=== PATIENT | female | born 1955 | race Caucasian/White ===

== ENCOUNTER 2018-11-08 06:41 | Inpatient (IN) ==
--- NOTE | 2018-11-07 21:46 | Discharge Summary ---
Date of Encounter: 11/11/18 Time of Encounter: 12:50 - Discharge Diagnosis (1) History of total knee arthroplasty Priority: Primary Status: Chronic Qualifiers: Laterality: left Qualified Code(s): Z96.652 - Presence of left artificial knee joint (2) Loosening of prosthesis of left total knee replacement Priority: Primary Status: Chronic Qualifiers: Encounter type: initial encounter Qualified Code(s): T84.033A - Mechanical loosening of internal left knee prosthetic joint, initial encounter (3) Status post total knee replacement Priority: Primary Status: Acute Qualifiers: Laterality: left Qualified Code(s): Z96.652 - Presence of left artificial knee joint (4) HTN (hypertension) Priority: Secondary Status: Chronic Qualifiers: Hypertension type: unspecified Qualified Code(s): I10 - Essential (primary) hypertension (5) HLD (hyperlipidemia) Priority: Secondary Status: Chronic Qualifiers: Hyperlipidemia type: unspecified Qualified Code(s): E78.5 - Hyperlipidemia, unspecified - Hospital Course Hospital course: Ms. Carmona is a 63 year old female Date of procedure: 11/08/18 Pre-op diagnosis: ASeptic loosening left total knee Post-op diagnosis: same Procedure: Left revision robotic-assisted Total knee replacement POD#3 Patient seen at bedside. A&Ox3 Dressing and incision c/d/i No calf tenderness, erythema, or warmth. Neurovascularly intact b/l LE. Labwork, vitals, and medications reviewed. Pain control: Adequate Participating in PT. All questions and concerns addressed. Educated on use of incentive spirometer, ambulation, and hydration. Patient educated on post-operative restrictions and care. Addressed: Patient initially recommended for inpatient rehab, however, patient has improved in self-sufficiency significantly over the past 48 hours and will now discharge home with outpatient therapy. D/C plan: Home with outpatient therapy and outpatient follow up arranged. - Time Spent with Patient Total time spent providing and/or coordinating discharge services: - Discharge Medications Prescriptions: Aleksandr Aspirin Enteric Coated [Aspirin EC] 325 mg PO BID 10 Days #20 tablet. Acetaminophen [Non-Aspirin Extra Strength] 500 mg PO Q6H PRN 7 Days #28 tablet PRN Reason: Mild To Moderate Pain Continued Zolpidem [Ambien] 10 mg PO HS Simvastatin [Zocor] 40 mg PO QPM Triamterene/Hydrochlorothiazid [Triamterene-Hctz 75-50 mg Tab] 1 tab PO QAM Omeprazole [PriLOSEC] 20 mg PO QPM [place]-3/Dha/Epa/Fish Oil [Fish Oil 1,000 mg Softgel] 1,000 mg PO QPM Aspirin [Lo-Dose Aspirin EC] 81 mg PO QPM Amitriptyline [Elavil] 10 mg PO QPM Cetirizine HCl [Zyrtec] 10 mg PO DAILY Metoprolol Succinate 12.5 mg PO QPM Home Medications: Acetaminophen [Non-Aspirin Extra Strength] 500 mg PO Q6H PRN 7 Days #28 tablet 11/07/18 [Rx] Aspirin Enteric Coated [Aspirin EC] 325 mg PO BID 10 Days #20 tablet.dr 11/07/18 [Rx] Amitriptyline [Elavil] 10 mg PO QPM 11/08/18 [History] Aspirin [Lo-Dose Aspirin EC] 81 mg PO QPM 11/08/18 [History] Cetirizine HCl [Zyrtec] 10 mg PO DAILY 11/08/18 [History] Metoprolol Succinate 12.5 mg PO QPM 11/08/18 [History] [place]-3/Dha/Epa/Fish Oil [Fish Oil 1,000 mg Softgel] 1,000 mg PO QPM 11/08/18 [History] Omeprazole [PriLOSEC] 20 mg PO QPM 11/08/18 [History] Simvastatin [Zocor] 40 mg PO QPM 11/08/18 [History] Triamterene/Hydrochlorothiazid [Triamterene-Hctz 75-50 mg Tab] 1 tab PO QAM 11/08/18 [History] Zolpidem [Ambien] 10 mg PO HS 11/08/18 [History] Allergies/Adverse Reactions: Allergy/AdvReac Type Severity Reaction Status Date / Time No Known Allergies Allergy Verified 11/08/18 07:54 Date of admission: 11/08/18 Primary care physician: PCP NONE Discharging clinician: Michael Erickson Anticipated date of discharge: 11/11/18 - VTE Documentation of Mechanical Device: Venous foot pump, device - Patient Status Disposition: Home, Self-Care Condition: Good Functional capacity at discharge: uses cane/walker Overall status at discharge: patient is progressing back to baseline - Discharge Instructions Follow Up With: Beth Good PAC [Physician Exhibit Display Representative] - 11/18/18 10:30 am (ALSO, 11/26/18 @ 10:30AM) Michael Erickson MD [Partnered Physician] - 12/08/18 5:20 pm NONE,PCP [Non-Partnered Physician] - Additional Instructions: Discharge Instructions: Total Knee Replacement Please call [facility] ([phone]), your Primary Care Physician, or report to the Emergency Room if you have any of the following symptoms: Nausea, vomiting, fever greater that 101.5, swelling, chest pain, shortness of breath, increased pain/redness/drainage/odor for your incision site, numbness/tingling, or any other concerning symptoms. ACTIVITY:Weight-bearing as tolerated. You may progress off support (crutches or walker) as tolerated. Incentive Spirometer 10 times an hour. MEDICATIONS: Upon discharge resume your home medications. Take all the medications as prescribed. Take a stool softener if taking narcotic pain medications. Stool softeners are only effective if you drink enough fluids. Drink 6-8 glass of water or fluids a day, unless this is not allowed for another health problem. Despite using stool softeners, if you haven't had a bowel movement in 3 days, please switch to a gentle laxative. Gentle laxatives are sold over the counter. You should have a bowel movement within 24 hours, if not call the office. You will be discharged from the hospital with a prescription for pain medication. You are encouraged to decrease the use of narcotic pain medication as tolerated. Should you require a refill, please call the office. [facility] prescribes narcotic pain medication for only 4-6 weeks after surgery. If you require pain medication beyond this time period, you may be referred to your Primary Care Physician or to the Pain Clinic for further evaluation. Plan ahead for refills on pain medication as many narcotics either need to be picked up at the office or mailed. It is best to call 48-72 hours in advance of needing a prescription refill so you don't run out of medication. To help control the post-operative pain, you may take NSAIDs (Aleve,Advil, Motrin, Ibuprofen, Naprosyn) or Tylenol as prescribed on the bottle in addition to the pain medication. ANTICOAGULATION (blood thinners): Continue your Aspirin, Lovenox or Coumadin as prescribed to help prevent a blood clot in the leg or in the lungs. As long as your incision remains dry and you tolerate the NSAIDs (Aleve, Advil, Motrin, ibuprofen, naprosyn), it is OK to use the NSAIDS while you are taking your anticoagulation medication. Should your incision start to drain, stop the NSAID and contact our office. Common symptoms of blood clot in the legs include: localized pain, swelling, calf tenderness, redness or discoloration of the skin. Blood clot in the lung symptoms include: shortness of breath, rapid pulse, sweating, and chest pain that worsens with deep breathing, coughing up blood, lightheadedness, feelings of anxiety. If you experience any of these symptoms notify your physician immediately, go to the emergency room, or if having trouble breathing, call 911. WOUND CARE: Leave the dressing on for 7 to 10days. You may change the dressing if it becomes saturated greater than 50%. Do not get the dressing wet at anytime. Wash your hands with antibacterial soap, rinse and dry prior to any wound care. If you have kamron the visiting nurse or rehab facility can remove the stapes 10-14 days after surgery and place steri-strips across the wound. Leave the steri-strips in place until they fall off on their won. You may let water from the shower run on top of the steri-strips. If you do not have a visiting nurse or rehab facility, you will need to return to the office at 10-14 days for the kamron to be removed. If you have itching or redness around the dressing call the office. FOLLOW-UP: Please follow up with your surgeon in the orthopedic clinic in 4 weeks from the day of surgery. If you have kamron that need to be removed, you will need to come back to the office in 10-14 days from the day of surgery. - Diet and Activity Activity: as per physical therapy Diet: advance to your usual diet
[2018-11-08] MEDS ORDERED: Celecoxib 200 MG CAPSULE PO ONE (07:43)
[2018-11-08] MEDS ORDERED: Ketorolac 30 MG/ML VIAL IVP PRN (07:43)
[2018-11-08] MEDS ORDERED: Acetaminophen IV 1,000 MG/100 ML INFUS..BTL IVPB ONE (07:43)
[2018-11-08] MEDS ORDERED: traMADol 50 MG TABLET PO ONE (07:43)
[2018-11-08] MEDS ORDERED: *HR* Meperidine 25 MG/ML SYRINGE IVP PRN (07:43)
[2018-11-08] MEDS ORDERED: Albuterol 2.5 MG/3 ML NEBULIZER IH PRN (07:43)
[2018-11-08] MEDS ORDERED: *HR* HYDROmorphone (PF) 1 MG/ML SYRINGE IVP PRN (07:44)
[2018-11-08] MEDS ORDERED: Ondansetron 4 MG/2 ML VIAL IVP ONE (07:44)
[2018-11-08] MEDS ORDERED: *HR* OxyCODONE Immed Rel 5 MG TABLET PO PRN (07:44)
[2018-11-08] MEDS ORDERED: *HR* Promethazine 25 MG/ML VIAL IVP PRN (07:44)
--- NOTE | 2018-11-08 07:46 | Anesthesia Evaluation PreOp ---
Date of Encounter: 11/08/18 Time of Encounter: 07:43 - Past History Planned Operation: LEFT TKA, REVISION Cardiac History: HTN Pulmonary History: Denies Any Significant HX WATCH CRYSTAL GRINDER History: Other (INSOMNIA) Other Medical History: GERD (CONTROLLED) Anesthesia History: No Prior Anesthetic Complications, Past Anesthesia Medications and Allergies Acetaminophen [Non-Aspirin Extra Strength] 500 mg PO Q6H PRN 7 Days #28 tablet 11/07/18 [Rx] Aspirin Enteric Coated [Aspirin EC] 325 mg PO BID 10 Days #20 tablet. 11/07/18 [Rx] Docusate Sodium [Colace] 100 mg PO BID 5 Days #10 capsule 11/07/18 [Rx] OxyCODONE Immed Rel [Roxicodone 5 MG] 5 mg PO Q6HR PRN 5 Days #20 tablet 11/07/18 [Rx] Allergy/AdvReac Type Severity Reaction Status Date / Time No Known Allergies Allergy Verified 11/03/18 15:49 - Meds/Allergy Pre-op Review Medications Reviewed: Yes Allergies Reviewed: Yes Beta Blockers on Current Med List: Yes If Beta Blockers taken, Date/Time (Last Dose taken): 2100 Anesthesia Exam Vital Signs/O2 Sat, Most Current Temp Pulse Resp BP Pulse Ox 98.0 F 80 18 129/87 99 11/08/18 07:04 11/08/18 07:04 11/08/18 07:04 11/08/18 07:04 11/08/18 07:04 Weight: 76 KG - BMI 31 NPO (# of Hours): 8 - HEENT Mallampati: I Teeth: Normal - Cardiac Rhythm: Regular - Pulmonary Breath Sounds: bilateral Clear Anesthesia Assess/Plan ASA Score: 2 Anesthetic Plan: Regional Nerve Block, Spinal Monitoring Plan: Standard Monitors Recovery Plan: PACU
--- NOTE | 2018-11-08 07:56 | History & Physical Report ---
Date of Encounter: 11/08/18 Time of Encounter: 07:56 24 Hour HP Update - Instructions Instructions: If the History and Physical is less than 30 days old and was completed prior to A.M. admission and or procedure and has NOT been updated on calendar day of procedure please complete this update prior to performing procedure. - Update Patient reports changes in Medical Condition: No Changes in examination, assessment, or condition: No Changes in Medication: No Preop tests/diagnostics Reviewed: Yes Surgery Remains Indicated: Yes Consent for Planned Operative Procedure(s) Verified: Yes - Pre-Operative Checklist Preoperative Checklist Indicated: No Prophylactic Antibiotic Ordered: Yes Is VTE Prophylaxis Indicated?: Yes
[2018-11-08] MEDS ORDERED: Ringers Solution, Lactated 1,000 ML IVC SCH (08:00)
[2018-11-08] MEDS ORDERED: *HR* FentaNYL (PF) 100 MCG/2 ML VIAL ONE (08:17)
[2018-11-08] MEDS ORDERED: Propofol 500 MG/50 ML INFUS..BTL ONE (08:17)
[2018-11-08] MEDS ORDERED: *HR* Midazolam HCl 2 MG/2 ML VIAL ONE (08:17)
[2018-11-08] MEDS ORDERED: *HR* Propofol 200 MG/20 ML VIAL IVP ONE ×2 (08:17→10:10)
[2018-11-08] MEDS: Gabapentin 300 MG CAPSULE PO ONE ×2 (08:19→08:28)
[2018-11-08] MEDS ORDERED: Lidocaine -MPF 2% 2 ML VIAL ONE (08:20)
[2018-11-08] MEDS ORDERED: ROPIVACAINE HCL/PF 0.5% 30 ML VIAL ONE (08:35)
[2018-11-08] MEDS ORDERED: Ethanol\\Acetic Acid\\Na Ace\\Ben 1,000 ML IRRIG.SOLN IR ONE (08:44)
--- NOTE | 2018-11-08 09:19 | Anesthesia Procedures ---
Date of Encounter: 11/08/18 Time of Encounter: 08:50 Procedures: Anesthesia - Epidural/Spinal Patient ID/Chart reviewed: Yes Patient examined: Yes Consent Obtained: Yes Supplemental Oxygen: Nasal Cannula Supplemental Oxygen Rate (L/min): 2 Sedation: Versed (mg): 2 Sedation: Fentanyl (mcg): 100 Site Prep: Sterile prep and drape, 0.5% Chlorhexidine/Alcohol Patient position: upright Local Anesthetic: Lidocaine 1% Amount of Local Anesthetic used: 0.5 Interspace Used: L2-L3 Blood: No CSF: Yes Paresthesia: No Spinal Needle Gauge: 24 Spinal Dose: 2.5cc 0.5% PF Marcaine Procedure: [facility] - Nerve Block Procedure Date: 11/08/18 Time: 09:05 Surgical Procedure: Left TKA Checklist: Correct Patient Identifier, Correct procedure, History checked Correct side: Left Blood Thinner: No Monitor Applied: EKG, BP, Pulse Oximetry Supplemental Oxygen via Nasal Cannula (L/min): 2 Sedation: Versed (mg): 0 (already received sedation for spinal) Indication: Post Op Analgesia (per dr. finn) Pre-op Neuro Deficits: No Block Type: Other (adductor canal) Catheter placed: No Sterile Technique: Yes Ultrasound used: Yes Anatomy identified: Yes Visual spread of Local: Yes Neuro Stimulation: No Blood on Needle Aspiration: No Smooth Injection of Local: Yes Pain with Injection of Local: No Prep: Chlorhexadine Needle: 22 x 50 mm Stimuplex Local: Ropivacaine (0.5% with 4mg decadron) Volume (cc): 10 Number of Attempts: 1 Complications: None/effective block Vitals: Vital Signs/O2 Sat/Glucose, Most Recent Temp Pulse Resp BP Pulse Ox 98.0 F 86 16 118/74 95 11/08/18 07:04 11/08/18 09:13 11/08/18 09:13 11/08/18 09:13 11/08/18 09:13 Comments: [facility]
[2018-11-08] MEDS ORDERED: *HR* PHENYLEPHRINE 1,000 MCG/10 ML SYRINGE IVP ONE ×2 (09:22→10:09)
[2018-11-08] MEDS ORDERED: Tranexamic Acid 1,000 MG/10 ML VIAL ONE (09:29)
[2018-11-08] MEDS ORDERED: EPHEDrine 50 MG/ML VIAL ONE (09:47)
[2018-11-08] MEDS ORDERED: Ropivacaine/PF 0.5% 24.62 ML, EPINEPHrine 0.25 MG, Ketorolac 15 MG, Water for inj. (ste... IR ONE (09:50)
--- NOTE | 2018-11-08 10:44 | Orthopedic Operative Note ---
Date of procedure: 11/08/18 Pre-op diagnosis: ASeptic loosening left total knee Post-op diagnosis: same Procedure: Procedure: Left revision robotic-assisted Total knee replacement Estimated blood loss: 200 cc Hardware: Metal and polyethylene replacement. Oralia Femur: 2 TS, 14 x 100 stem Tibia: 2, 5 mm augments medial and lateral 10 x 100 stem TS insert: 19 Exam Under anesthesia: 0 degrees flexion-extension, 7 degree varus as calculated by the robot full flexion and no instability Procedural Notes: Loosening of tibial and femoral components. Operative procedure: The patient was brought to the operating room and placed on the operating room table. After general anesthesia was administered the operative knee was examined. Findings were noted in the exam under anesthesia. The operative extremity was prepped and draped in sterile surgical fashion. The patient received IV antibiotics prior to skin incision. A standard midline incision was made centered over the patella. The incision was made through the old incision. The incision was made through the skin and subcutaneous tissue. A medial parapatellar tendon approach was performed. Care was taken to preserve tissue along the medial aspect of the patella. And to protect the patella tendo n. The deep MCL was released off the medial tibia. The infra patella fat pad was excised. Joint fluid encountered was normal appearing joint fluid, this was sent for Gram stain and culture. Patella component was without abnormality. Was well fixed. Knee was brought into flexion. Steinmann pins were placed in the tibia and the femur for the tibial and femoral arrays respectively. Checkpoints were also placed in the tibia and the femur for calculation purposes. The knee including the femur and the tibial registered. Using careful surgical technique, the interface between the patient's distal femur and femoral component was disrupted with an osteotome and oscillating saw, this resulted in the removal of the femoral component without significant loss of bone. The same technique was countersunk tibia without loss of bone. Femoral cuts were made first with robotic assistance, these included the anterior cut posterior cuts chamfer cuts. Tibial cut was then performed with robotic assistance as well. Bone fragments were removed. The size 2 femoral guide was seated box cut was made lug holes are drilled. The size 2 tibial tray was seated and prepared with the fin cutter. Trial reduction with the 19 TS Marga revealed extension of 0 degree and 2 degree varus and full flexion. This was with augments and 5 mm medial and lateral. No varus valgus instability. Trial reduction revealed excellent patella tracking. The distal femur was reamed up to a 14 x 100, the proximal tibia was reamed up to a 10 x 100. All trial components were removed all bony surfaces were irrigated. The Tibia was seated followed by the femur, The selected Marga size was seated. Patient had similar findings for motion and stability. The knee was closed by the PA. The knee was then irrigated out with 2 L of pulse irrigation. The extensor mechanism was closed with #2 FiberWire suture and #2 PDS suture. The subcutaneous tissue was then irrigated and closed deep with #1 PDS suture superficially with 0 PDS suture and skin was closed with zip tie The patient was then placed in a sterile dressing and a postoperative brace extubated and transferred to recovery room in stable condition. Anesthesia: spinal Surgeon: Michael Erickson Was there an assistant professor of german present: No Estimated blood loss (cc): 200 Condition: stable Disposition: PACU
--- NOTE | 2018-11-08 11:39 | Anesthesia Evaluation Post Op ---
Date of Encounter: 11/08/18 Time of Encounter: 11:38 - Vital Signs Vital Signs: Last Vital Signs Temp 98.1 F 11/08/18 11:35 Pulse 77 11/08/18 11:35 Resp 16 11/08/18 11:35 BP 114/66 11/08/18 11:35 Pulse Ox 95 11/08/18 11:35 - Lungs Lungs: Clear Ascult./Percussion - Airway Airway: Non-obstructed - Cardiovascular Regular Rate - Mental Status Mental Status: Alert & Oriented, Answers Appropriately - Pain Pain Scale: 0 - Nausea Vomiting Nausea Vomiting: Not Present - Hydration Hydration: Ice chips - Discharge PostOp Status: Transfer Patient to floor
[2018-11-08 11:40] LABS: Hematocrit 35.5 % (35.3-44.9)
[2018-11-08 11:44] LABS: Hemoglobin 12.2 g/dL (11.5-15.4)
[2018-11-08] MEDS ORDERED: Sennosides 8.6 MG TABLET PO PRN (12:03)
[2018-11-08] MEDS ORDERED: Naloxone 0.4 MG/ML INJ IVP PRN (12:03)
[2018-11-08] MEDS ORDERED: MOM Conc 10 ML UD.LIQ PO PRN (12:03)
[2018-11-08] MEDS ORDERED: Temazepam 15 MG CAPSULE PO PRN (12:03)
[2018-11-08] MEDS: Ascorbic Acid 500 MG TABLET PO SCH ×2 (13:36→16:54)
[2018-11-08] MEDS: Loratadine 10 MG TABLET PO SCH (13:36)
[2018-11-08] MEDS: Multivit/Ca/Min/Fe/FA 1 TAB TABLET PO SCH (13:37)
[2018-11-08] MEDS: HYDROcodone BIT/Homatropine 5 MG TABLET PO PRN (13:51)
[2018-11-08] MEDS: Ondansetron 4 MG/2 ML VIAL IVP PRN (13:51)
[2018-11-08] MEDS: Ringers Solution, Lactated 1,000 ML IVC SCH ×2 (13:58→16:55)
[2018-11-08] MEDS: *HR* OxyCODONE Immed Rel 5 MG TABLET PO PRN (17:33)
[2018-11-08] MEDS ORDERED: *HR* Enoxaparin 30 MG/0.3 ML SYRINGE SQ SCH (18:00)
[2018-11-08] MEDS: *HR* Promethazine 25 MG/ML VIAL IVP PRN (18:47)
[2018-11-08] MEDS: Aspirin Enteric Coated 81 MG Tablet PO SCH (18:47)
[2018-11-08] MEDS: (Omega-3/Dha/Epa/Fish Oil [Fish Oil 1,000 Mg Softgel] PO SCH (18:48)
[2018-11-08] MEDS: *HR* Enoxaparin 30 MG/0.3 ML SYRINGE SQ SCH (18:48)
[2018-11-09] MEDS: *HR* OxyCODONE Immed Rel 5 MG TABLET PO PRN ×3 (01:08→22:44)
[2018-11-09] MEDS: *HR* Enoxaparin 30 MG/0.3 ML SYRINGE SQ SCH ×2 (05:20→18:11)
[2018-11-09] MEDS: HYDROcodone BIT/Homatropine 5 MG TABLET PO PRN ×2 (05:34→16:44)
--- NOTE | 2018-11-09 06:41 | Orthopedics Progress Note ---
Date of Encounter: 11/09/18 Time of Encounter: 06:41 Subjective Interval history: Patient was seen this morning doing well without complaints. Afebrile vital signs stable. Operative extremity: Neurovascularly intact Dressing clean dry and intact Calves nontender Assessment and plan: Continue with postoperative care Plan for discharge today Objective Vital signs: Vital Signs Temp Pulse Resp BP Pulse Ox 11/09/18 05:18 98.4 F 105/64 11/09/18 04:46 97.8 F 95 19 96/62 92 11/09/18 02:31 98.2 F 11/08/18 23:34 98 F 11/08/18 21:17 97.8 F 11/08/18 20:17 97.5 F L 91 17 123/81 96 11/08/18 18:52 97.4 F L 83 115/74 11/08/18 17:31 96.4 F L 11/08/18 17:00 95.8 F L 11/08/18 16:19 97.2 F L 11/08/18 13:30 72 16 108/73 97 11/08/18 12:29 99 11/08/18 12:28 74 14 113/73 99 11/08/18 12:05 88 11/08/18 11:53 97.4 F L 71 15 109/74 94 11/08/18 11:35 98.1 F 77 16 114/66 95 11/08/18 11:25 79 14 119/72 93 11/08/18 11:15 82 16 117/64 93 11/08/18 11:05 97.1 F L 86 16 111/64 95 11/08/18 09:13 86 16 118/74 95 11/08/18 09:08 84 16 128/77 93 11/08/18 09:03 80 16 127/86 98 11/08/18 08:58 82 16 127/90 93 11/08/18 08:53 82 18 151/100 97 11/08/18 07:04 98.0 F 80 18 129/87 99 Intake and Output 11/08/18 11/08/18 11/09/18 15:59 23:59 07:59 Intake Total 1100 / 1100 100 / 100 Output Total 200 / 200 Balance -200 / 900 1100 / 900 100 / 100 Intake: IV Fluids 1100 / 1100 100 / 100 Lactated Ringers 1,000 ML @ 75 1000 / 1000 mls/hr IVC .[id number] DANNY Rx#: [id number] Ancef 2,000 MG In 0.9 % Sodium 100 / 100 100 / 100 Chloride 100 ML @ 200 mls/hr IVPB Q8H DANNY Rx#:[id number] Output: Estimated Blood Loss 200 / 200 Other: # Voids 1 - Labs CBC & BMP: 11/08/18 11:18 - VTE Documentation of Mechanical Device: Venous foot pump, device Consult Discharge Plan - Plan Referrals: NONE,PCP [Non-Partnered Physician] -
[2018-11-09 07:03] LABS: Basophils % 0.1 %; Hematocrit 30.8 % (35.3-44.9); Immature Granulocytes % 0.4 % (0-4); Lymphocytes # 1.4 K/mcL (0.6-4.6); Mean Corpuscular HGB Conc 34.4 g/dL (31.6-35.5); Mean Corpuscular Volume 90.1 fL (83.0-100.0); Mean Platelet Volume 9.7 fL (9.4-12.4); Monocytes # 0.8 K/mcL (0.0-1.3); Monocytes % 5.1 %; Platelet Count 250 K/mcL (140-400); Red Blood Count 3.42 M/mcL (3.82-4.97); Red Cell Distribution Width 13.5 % (11.5-14.5); Segmented Neutrophils % 85.4 %
[2018-11-09 07:15] LABS: Neutrophils # 13.3 K/mcL (1.6-8.9)
[2018-11-09 07:16] LABS: Hemoglobin 10.6 g/dL (11.5-15.4)
[2018-11-09 07:26] LABS: BUN/Creatinine Ratio 21 (6-26); Blood Urea Nitrogen 20 mg/dL (8-23); Calcium 8.5 mg/dL (8.6-10.3); Carbon Dioxide 25 mEq/L (23-29); Chloride 101 mEq/L (98-107); Glucose 116 mg/dL (70-105); Osmolality,Calculated 282 (280-300); Potassium 3.7 mEq/L (3.5-5.1); Sodium 134 mEq/L (136-145); eGFR For Non-African Americans 59 (> 60)
[2018-11-09] MEDS: Ondansetron 4 MG/2 ML VIAL IVP PRN (09:39)
[2018-11-09] MEDS: Multivit/Ca/Min/Fe/FA 1 TAB TABLET PO SCH (09:39)
[2018-11-09] MEDS: Ascorbic Acid 500 MG TABLET PO SCH ×2 (09:40→18:12)
[2018-11-09] MEDS: Loratadine 10 MG TABLET PO SCH (09:40)
--- NOTE | 2018-11-09 11:46 | Event Note ---
Date of Encounter: 11/09/18 Time of Encounter: 13:00 Date of procedure: 11/08/18 Pre-op diagnosis: ASeptic loosening left total knee Post-op diagnosis: same Procedure: Left revision robotic-assisted Total knee replacement POD#1 Patient seen at bedside. A&Ox3 Dressing and incision c/d/i No calf tenderness, erythema, or warmth. Neurovascularly intact b/l LE. Labwork, vitals, and medications reviewed. Pain control: Adequate Participating in PT. All questions and concerns addressed. Educated on use of incentive spirometer, ambulation, and hydration. Patient educated on post-operative restrictions and care. Addressed: Awaiting [facility] authorization for ECF discharge. D/C plan: [facility] [place] [facility] Auth
--- NOTE | 2018-11-09 11:46 | Physician Discharge Referral ---
ExtendedCare Referral Info Transfer To: [facility] Provider in Charge: Dr. Michael Erickson - Diagnosis (1) History of total knee arthroplasty Priority: Primary Status: Chronic (2) Loosening of prosthesis of left total knee replacement Priority: Primary Status: Chronic (3) Status post total knee replacement Priority: Primary Status: Acute (4) HTN (hypertension) Priority: Secondary Status: Chronic (5) HLD (hyperlipidemia) Priority: Secondary Status: Chronic Expected Duration of Placement: less than 30 days Prognosis: Good Aware of Diagnosis: Patient Aware of Prognosis: Patient - Transfer Medications Home Medications: Acetaminophen [Non-Aspirin Extra Strength] 500 mg PO Q6H PRN 7 Days #28 tablet 11/07/18 [Rx] Aspirin Enteric Coated [Aspirin EC] 325 mg PO BID 10 Days #20 tablet.dr 11/07/18 [Rx] Docusate Sodium [Colace] 100 mg PO BID 5 Days #10 capsule 11/07/18 [Rx] OxyCODONE Immed Rel [Roxicodone 5 MG] 5 mg PO Q6HR PRN 5 Days #20 tablet 11/07/18 [Rx] Amitriptyline [Elavil] 10 mg PO QPM 11/08/18 [History] Aspirin [Lo-Dose Aspirin EC] 81 mg PO QPM 11/08/18 [History] Cetirizine HCl [Zyrtec] 10 mg PO DAILY 11/08/18 [History] Metoprolol Succinate 12.5 mg PO QPM 11/08/18 [History] [place]-3/Dha/Epa/Fish Oil [Fish Oil 1,000 mg Softgel] 1,000 mg PO QPM 11/08/18 [History] Omeprazole [PriLOSEC] 20 mg PO QPM 11/08/18 [History] Simvastatin [Zocor] 40 mg PO QPM 11/08/18 [History] Triamterene/Hydrochlorothiazid [Triamterene-Hctz 75-50 mg Tab] 1 tab PO QAM 11/08/18 [History] Zolpidem [Ambien] 10 mg PO HS 11/08/18 [History] Allergies/Adverse Reactions: Allergy/AdvReac Type Severity Reaction Status Date / Time No Known Allergies Allergy Verified 11/08/18 07:54 - Respiratory Orders Smoking Cessation: Smoking cessation has been advised. For more information, call the [place] Tobacco Quit Line at 0-032-DAFM-NOW. - Ancillary Orders May use pressure relief devices daily prn, May go on JAMI w/family/respon constitution party w/meds at nurse discretion PRN, May consult with Dentist, Training Systems Officer, Instrument Mechanics Supervisor PRN - Mobility Orders Chair, Ambulate - Rehabiliation Orders Rehab Potential: Good Rehab Orders: Evaluation for Physical Therapy, Evaluation for Occupational Therapy Other: Total Knee replacement Precautions x 6 weeks Apply cold therapy wrap 3-6x/day for 20 minutes at a time. Encourage ambulation throughout the day and incentive spirometer 10x/hour. Elevate affected extremity above heart as tolerated. Brace: Wear knee immobilizer at night x 2 weeks. - Treatments Skin tear care topically daily PRN per policy List/Other: Opsite placed. Keep dressing intact until first follow up appointment. If greater than 50% saturated, notify office, remove dressing and place appropriate dressing back in place. Leave Zipline intact. Opsite dressing is water resistant, not water-proof. OK to shower, but do not get dressing wet. - Diet Orders Regular CERTIFICATION: I certify that the transfer of the above named patient to an Extended Care Facility is necessary for the continuing treatment of the diagnosis listed. The above information is true and accurate reflection of patient's current condition. Confidential - Redisclosure prohibited without a patient's written consent.
[2018-11-09] MEDS: *HR* Promethazine 25 MG/ML VIAL IVP PRN (12:12)
[2018-11-09] MEDS ORDERED: Famotidine 20 MG TABLET PO PRN (17:19)
[2018-11-09] MEDS: (Omega-3/Dha/Epa/Fish Oil [Fish Oil 1,000 Mg Softgel] PO SCH (18:06)
[2018-11-09] MEDS: Aspirin Enteric Coated 81 MG Tablet PO SCH (18:12)
[2018-11-09] MEDS: traMADol 50 MG TABLET PO PRN (18:12)
[2018-11-10] MEDS: traMADol 50 MG TABLET PO PRN (00:58)
[2018-11-10] MEDS: *HR* Enoxaparin 30 MG/0.3 ML SYRINGE SQ SCH ×2 (05:11→18:23)
--- NOTE | 2018-11-10 06:41 | Orthopedics Progress Note ---
Date of Encounter: 11/10/18 Time of Encounter: 06:41 Subjective Interval history: Patient was seen this morning doing well without complaints. Afebrile vital signs stable. Operative extremity: Neurovascularly intact Dressing clean dry and intact Calves nontender Assessment and plan: Continue with postoperative care Patient going to [facility] discharge when approved. Hemoglobin 10.6 Objective Vital signs: Vital Signs Temp Pulse Resp BP Pulse Ox 11/10/18 05:05 98.7 F 86 15 108/70 90 11/09/18 22:48 98.2 F 83 16 124/76 94 11/09/18 18:47 98.8 F 93 17 136/80 95 11/09/18 16:15 98.6 F 96 17 130/76 96 11/09/18 11:26 97.6 F 79 19 110/71 96 11/09/18 07:22 98.3 F 90 18 97/62 94 Intake and Output 11/09/18 11/09/18 11/10/18 15:59 23:59 07:59 Intake Total 120 / 270 50 / 270 Balance 120 / 270 50 / 270 Intake: Oral 120 / 170 50 / 170 Other: Meal Breakfast Percent of Meal Consumed 100% # Voids 1 1 Weight 76.5 kg Patient Weight 11/10/18 23:59 Weight 76.5 kg - Labs CBC & BMP: 11/09/18 06:08 11/09/18 06:08 Labs: Abnormal lab results WBC 15.6 K/mcL (4.3-11.1) H D 11/09/18 06:08 RBC 3.42 M/mcL (3.82-4.97) L 11/09/18 06:08 Hgb 10.6 g/dL (11.5-15.4) L D 11/09/18 06:08 Hct 30.8 % (35.3-44.9) L 11/09/18 06:08 13.3 K/mcL (1.6-8.9) H 11/09/18 06:08 Sodium 134 mEq/L (136-145) L 11/09/18 06:08 Est GFR (Non-Af Amer) 59 (> 60) L 11/09/18 06:08 Glucose 116 mg/dL (70-105) H 11/09/18 06:08 Calcium 8.5 mg/dL (8.6-10.3) L 11/09/18 06:08 - VTE Documentation of Mechanical Device: Venous foot pump, device Consult Discharge Plan - Plan Referrals: NONE,PCP [Non-Partnered Physician] -
[2018-11-10 06:48] LABS: Basophils % 0.2 %; Eosinophils # 0.1 K/mcL (0.0-0.6); Eosinophils % 0.8 %; Hematocrit 31.6 % (35.3-44.9); Hemoglobin 10.9 g/dL (11.5-15.4); Immature Granulocytes % 0.3 % (0-4); Lymphocytes # 1.5 K/mcL (0.6-4.6); Lymphocytes % 15.5 %; Mean Corpuscular HGB Conc 34.5 g/dL (31.6-35.5); Mean Corpuscular Volume 89.8 fL (83.0-100.0); Mean Platelet Volume 9.2 fL (9.4-12.4); Monocytes # 0.6 K/mcL (0.0-1.3); Monocytes % 6.6 %; Neutrophils # 7.3 K/mcL (1.6-8.9); Platelet Count 229 K/mcL (140-400); Red Blood Count 3.52 M/mcL (3.82-4.97); Red Cell Distribution Width 13.7 % (11.5-14.5); Segmented Neutrophils % 76.6 %
[2018-11-10 07:07] LABS: BUN/Creatinine Ratio 17 (6-26); Blood Urea Nitrogen 16 mg/dL (8-23); Calcium 8.9 mg/dL (8.6-10.3); Carbon Dioxide 29 mEq/L (23-29); Chloride 96 mEq/L (98-107); Glucose 101 mg/dL (70-105); Osmolality,Calculated 277 (280-300); Potassium 3.5 mEq/L (3.5-5.1); Sodium 133 mEq/L (136-145); eGFR For Non-African Americans > 60 (> 60)
[2018-11-10] MEDS: *HR* OxyCODONE Immed Rel 5 MG TABLET PO PRN ×3 (08:23→20:18)
[2018-11-10] MEDS: Ascorbic Acid 500 MG TABLET PO SCH ×2 (08:24→16:22)
[2018-11-10] MEDS: Loratadine 10 MG TABLET PO SCH (08:24)
[2018-11-10] MEDS: Multivit/Ca/Min/Fe/FA 1 TAB TABLET PO SCH (08:24)
[2018-11-10] MEDS: Ondansetron 4 MG/2 ML VIAL IVP PRN (08:29)
--- NOTE | 2018-11-10 09:54 | Event Note ---
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 A&Ox3 Dressing and incision c/d/i No calf tenderness, erythema, or warmth. Neurovascularly intact b/l LE. Labwork, vitals, and medications reviewed. Pain control: Adequate Participating in PT. All questions and concerns addressed. Educated on use of incentive spirometer, ambulation, and hydration. Patient educated on post-operative restrictions and care. Addressed: Awaiting [facility] authorization for ECF discharge. Nausea ongoing - seems to be secondary to pain medication - unrelieved thus far with medication. Encouraged to minimize use of pain medication at this time. D/C plan: [facility] - awaiting Auth
[2018-11-10] MEDS: Aspirin Enteric Coated 81 MG Tablet PO SCH (18:22)
[2018-11-11] MEDS: *HR* OxyCODONE Immed Rel 5 MG TABLET PO PRN ×3 (02:32→13:12)
[2018-11-11] MEDS: *HR* Enoxaparin 30 MG/0.3 ML SYRINGE SQ SCH (05:58)
--- NOTE | 2018-11-11 06:44 | Orthopedics Progress Note ---
Date of Encounter: 11/11/18 Time of Encounter: 06:43 Subjective Interval history: Patient was seen this morning doing well without complaints. Afebrile vital signs stable. Operative extremity: Neurovascularly intact Dressing clean dry and intact Calves nontender Assessment and plan: Continue with postoperative care Discharged home today Objective Vital signs: Vital Signs Temp Pulse Resp BP Pulse Ox 11/11/18 06:38 105 16 127/82 93 11/11/18 04:11 99.6 F 104 15 119/73 90 11/10/18 23:26 98.6 F 92 15 111/73 90 11/10/18 18:55 98.9 F 105 16 134/83 95 11/10/18 15:20 99.0 F 94 15 131/82 94 11/10/18 09:46 98.2 F 79 16 109/76 95 Intake and Output 11/10/18 11/10/18 11/11/18 15:59 23:59 07:59 Intake Total 200 / 250 50 / 250 Output Total 500 / 500 Balance -300 / -250 50 / -250 Intake: Oral 200 / 250 50 / 250 Output: Urine 500 / 500 Other: # Voids 1 1 Weight 76.6 kg Blood Glucose* 205 Patient Weight 11/11/18 23:59 Weight 76.6 kg - Labs CBC & BMP: 11/10/18 06:33 11/10/18 06:33 Labs: Abnormal lab results WBC 15.6 K/mcL (4.3-11.1) H D 11/09/18 06:08 RBC 3.52 M/mcL (3.82-4.97) L 11/10/18 06:33 Hgb 10.9 g/dL (11.5-15.4) L 11/10/18 06:33 Hct 31.6 % (35.3-44.9) L 11/10/18 06:33 MPV 9.2 fL (9.4-12.4) L 11/10/18 06:33 13.3 K/mcL (1.6-8.9) H 11/09/18 06:08 Sodium 133 mEq/L (136-145) L 11/10/18 06:33 Chloride 96 mEq/L (98-107) L 11/10/18 06:33 Est GFR (Non-Af Amer) 59 (> 60) L 11/09/18 06:08 Glucose 116 mg/dL (70-105) H 11/09/18 06:08 277 (280-300) L 11/10/18 06:33 Calcium 8.5 mg/dL (8.6-10.3) L 11/09/18 06:08 - VTE Documentation of Mechanical Device: Venous foot pump, device Consult Discharge Plan - Plan Referrals: NONE,PCP [Non-Partnered Physician] -
[2018-11-11] MEDS ORDERED: Acetaminophen 325 MG TABLET PO PRN (07:31)
[2018-11-11] MEDS: Ascorbic Acid 500 MG TABLET PO SCH (07:48)
[2018-11-11] MEDS: Multivit/Ca/Min/Fe/FA 1 TAB TABLET PO SCH (07:48)
[2018-11-11] MEDS: Loratadine 10 MG TABLET PO SCH (07:48)
[2018-11-11 10:43] VITALS: BP 105/67
== END 2018-11-11 13:34 | disposition home or self-care (01) | DRG 468 ==
LOC: SAMDAY 06:41 → 3NENU 11:30
PROVIDERS: ADMIT Orthopaedic Surgery; ATTEND Orthopaedic Surgery